=== PATIENT | female | born 1960 | race Caucasian/White ===

== ENCOUNTER 2019-01-21 12:27 | Inpatient (IN) | payer OTHER ==
[~2019-01-21] VITALS: Ht 175.3 cm; Wt 98.0 kg
[2019-01-21 15:00] VITALS: BP 135/63; PULSE 92; RESP 16
[2019-01-21 15:17] VITALS: Ht 175.3 cm; Wt 98.0 kg
[2019-01-21] MEDS ORDERED: SOD CHLORIDE 0.9% 1,000 ML IV SCH (15:41)
[2019-01-21] MEDS ORDERED: LEVOFLOXACIN 500MG/D5W (PMX) 100 ML IVPB SCH (16:00)
[2019-01-21] MEDS ORDERED: ONDANSETRON 4 MG INJ IV PRN (16:00)
[2019-01-21] MEDS ORDERED: NACL 0.9% 3 ML SYG IV SCH (16:00)
[2019-01-21] MEDS ORDERED: HYDROCODONE/APAP (5/325) TAB PO PRN (16:00)
[2019-01-21] MEDS ORDERED: ACETAMINOPHEN 325 MG TAB PO PRN (16:00)
[2019-01-21 16:07] VITALS: PULSE 93
--- NOTE | 2019-01-21 16:10 | HP ---
Date/Time of Note Date/Time of Note DATE: 01/21/19 TIME: 16:10 Assessment/Plan VTE Prophylaxis Pharmacological prophylaxis: other Assessment/Plan Hospital Course Patient is a male to female transgender who presents to [facility] as a transfer for unknown fever and leukocytosis. Patient likes to be referred as Ernestina. Patient states that she was at her normal baseline up unti l this morning, patient is homeless, stated that other than some nausea and diarrhea she had met once earlier in the morning cannot think of any new symptoms. Patient states that she has a chronic cough for approximately 1 to 2 years. Other than that she feels at her normal baseline. Parabasal and consists of some ambulation but usually uses a wheelchair to get around. Patient cannot state any other issues other than feeling just generalized malaise. Patient denies chest pain, severe shortness of breath, dizziness, abdominal pain, difficulty urination, or leg pain. Objective Physical exam General: Patient is laying in bed and answers questions appropriately Mentation: Patient is alert and oriented 4, Head: Normocephalic atraumatic Eyes: EOMI, pupils reactive to light Neck: Supple, nontender, midline Respiratory: Clear to auscultation bilaterally Cardiovascular: regular rate, no obvious murmurs Gastrointestinal: non-tender to palpation, bowel sounds heard. Neurological: Moves all extremities spontaneously Skin: No new skin lesions Assessment and plan Sepsis with possible GI source -Possible viral gastroenteritis, no abdominal pain and only happened once, no diarrhea or nausea currently -Cultures -UA and chest x-ray were negative at outside facility however will repeat UA and chest x-ray here -IV fluid -IV antibiotic as a precaution Hypertension -Continue home meds Male to female transgender -On monthly injections of estrogen, uses spironolactone as blockade -Continue as able Disposition -Getting stat repeat labs of everything, only remarkable issue from outside facility was a white count of 20,000 as well as a fever 102, no other positive lab test. However we may need to call outside facility in 1 to 2 days to see if any of their cultures came back positive. HPI/ROS Admit Date/Time Admit Date/Time Jan 21, 2019 at 14:35 PMH/Family/Social Past Medical History Medications Current Medications Sodium Chloride 1,000 ml @ 50 mls/hr Q20H IV ; Start 01/21/19 at 15:41; Stop 01/22/19 at 11:40 IV Flush (NS 3 ml) 3 ml PER PROTOCOL IV ; Start 01/21/19 at 16:00 Ondansetron HCl (Zofran Inj) 4 mg Q6H PRN IV NAUSEA/VOMITING; Start 01/21/19 at 16:00 Acetaminophen (Tylenol Tab) 650 mg Q6H PRN PO .PAIN 1-3 OR TEMP; Start 01/21/19 at 16:00 Acetaminophen/ Hydrocodone Bitart (Neche (5/325)) 1 tab Q6H PRN PO .PAIN 4-6; Start 01/21/19 at 16:00 Levofloxacin/ Dextrose 100 ml @ 100 mls/hr Q24H IVPB ; Start 01/21/19 at 16:00 Hydrochlorothiazide (Hydrochlorothiazide) 12.5 mg DAILY PO ; Start 01/22/19 at 09:00; Status UNV Montelukast Sodium (Singulair) 10 mg HS PO ; Start 01/21/19 at 21:00; Status UNV Spironolactone (Aldactone) 100 mg DAILY PO ; Start 01/22/19 at 09:00; Status UNV Budesonide (Pulmicort (Neb)) 0.5 mg BID RESP THERAPY HHN ; Start 01/21/19 at 20:00; Status UNV Albuterol/ Ipratropium (Duoneb) 3 ml Q6HWA RESP THERAPY HHN ; Start 01/21/19 at 20:00; Status UNV Albuterol/ Ipratropium (Duoneb) 3 ml Q2H RESP THERAPY PRN HHN shortness of breath; Start 01/21/19 at 16:30; Status UNV Uncoded Allergies: SEA FOOD, CHLORPROMAZINE (Allergy, Mild, 01/21/19) Social History Smoking Status: Current every day smoker Exam/Review of Systems Vital Signs Vitals Vital Signs Date Temp Pulse Resp B/P (MAP) Pulse Ox O2 O2 Flow FiO2 Time Delivery Rate 01/21/19 93 16:07 [place] Jan 21, 2019 16:10
[2019-01-21] MEDS ORDERED: ALBUTEROL/IPRATROPIUM (NEB) 3 ML AMP HHN PRN (16:30)
[2019-01-21 20:00] VITALS: PULSE 102
[2019-01-21] MEDS ORDERED: BUDESONIDE (NEB) 0.5MG/2ML AMP HHN SCH (20:00)
[2019-01-21] MEDS ORDERED: ALBUTEROL/IPRATROPIUM (NEB) 3 ML AMP HHN SCH (20:00)
[2019-01-21] MEDS ORDERED: HYDR12.58 PO (20:57)
[2019-01-21] MEDS ORDERED: NAPR500T8 PO (20:57)
[2019-01-21] MEDS ORDERED: FLUT1BLS INHALATION (20:57)
[2019-01-21] MEDS ORDERED: ASPI-817 PO (20:57)
[2019-01-21] MEDS ORDERED: ATRO INHALATION (20:57)
[2019-01-21] MEDS ORDERED: AMLO-218 PO (20:57)
[2019-01-21] MEDS ORDERED: SPIR100T4 PO (20:57)
[2019-01-21] MEDS ORDERED: MONTELUKAST 10 MG TAB PO SCH (21:00)
[2019-01-21 21:45] VITALS: BP 96/55; PULSE 93; RESP 18
[2019-01-21] MEDS ORDERED: NAPROXEN 500 MG TAB PO PRN (23:00)
[2019-01-21] MEDS: SPIRONOLACTONE 50 MG TAB PO SCH ×2 (23:24→23:41)
[2019-01-21] MEDS ORDERED: AMLODIPINE 10 MG TAB PO SCH (23:30)
[2019-01-21] MEDS ORDERED: ASPIRIN (EC) 81 MG TAB PO SCH (23:30)
[2019-01-21] MEDS ORDERED: FLUTICASONE/VILANTEROL 200-25 INH DEVICE INH SCH ×2 (23:30)
[2019-01-22] VITALS: BP 106/54; PULSE 85; RESP 19
[2019-01-22 04:00] VITALS: BP 128/60; PULSE 78; PULSE 91; RESP 19
--- NOTE | 2019-01-22 08:58 | DS ---
Date/Time of Note Date/Time of Note DATE: 01/22/19 TIME: 08:58 Discharge Summary Admission/Discharge Info Admit Date/Time Jan 21, 2019 at 14:35 Discharge Date/Time Jan 22, 2019 at 07:48 Discharge Diagnosis 1. Sepsis with possible GI source 2. Hypertension 3. Male to female transgender Patient Condition: Stable Procedures PROCEDURE: XR Chest. CLINICAL INDICATION: Pneumonia. TECHNIQUE: Chest, 1 view. COMPARISON: 01/21/2019. FINDINGS: The cardiomediastinal silhouette is normal in size. There are aortic calcifications. There is bilateral interstitial prominence. No pleural effusion is seen. No definite pneumothorax is seen. No acute osseous abnormality. IMPRESSION: Mild bilateral interstitial prominence, representing vascular congestion versus chronic interstitial changes. Aortic atherosclerosis RPTAT: [facility]WH Corie Bermudez Physician Date Time Electronically viewed and signed by Corie Bermudez Physician on 01/21/2019 16:52 Hx of Present Illness Patient is a male to female transgender who presents to [facility] as a transfer for unknown fever and leukocytosis. Patient likes to be referred as Ernestina. Patient states that she was at her normal baseline up until this morning, patient is homeless, stated that other than some nausea and diarrhea she had met once earlier in the morning cannot think of any new symptoms. Patient states that she has a chronic cough for approximately 1 to 2 years. Other than that she feels at her normal baseline. Parabasal and consists of some ambulation but usually uses a wheelchair to get around. Patient cannot state any other issues other than feeling just generalized malaise. Patient denies chest pain, severe shortness of breath, dizziness, abdominal pain, difficulty urination, or leg pain. Hospital Course Patient was admitted for additional workup of unknown fever and leukocytosis. Patient remained afebrile and WBC was trending down. Patient had repeat CXR that was negative for acute infection. She was noted with acute GI symptoms which may have been the source of her symptoms. Patient left AGAINST MEDICAL ADVICE before full workup was completed. Home Meds Reported Medications Fluticasone/Vilanterol (Breo Ellipta 200-25 Mcg INH) 1 Each Blst.w.dev, 1 PUFF INHALATION QHS, #1 INHALER 01/21/19 Ipratropium [place]* (Atrovent HFA*) 12.9 Gm Aer.w.adap, 2 PUFF INHALATION DAILY, #1 INHALER 01/21/19 Spironolactone* (Spironolactone*) 100 Mg Tablet, 100 MG PO QHS, TAB 01/21/19 Naproxen* (Naproxen EC*) 500 Mg Tablet., 500 MG PO BID PRN for PAIN, TAB 01/21/19 Hydrochlorothiazide* (Hydrochlorothiazide*) 12.5 Mg Tablet, 12.5 MG PO QHS, #30 TAB 01/21/19 Amlodipine Besylate* (Norvasc*) 10 Mg Tablet, 10 MG PO QHS, TAB 01/21/19 Aspirin* (Aspirin* EC) 81 Mg Tablet., 81 MG PO QHS, TAB 01/21/19 Primary Care Provider [facility] Time spent on discharge: < 30 minutes Pending Labs Laboratory Tests Test 01/21/19 16:00 01/21/19 16:37 01/21/19 23:30 01/22/19 05:15 Prothrombin 14.3 Time Sec (11.9-14.9) Prothrombin 1.1 Time Ratio INR 1.10 International Normalized Rati o Activated 28.9 Partial Thrombo Sec (23.0-35.0) plast Time Sodium Level 136 139 mmol/L (135-144 mmol/L (135-14 ) 4) Potassium 4.2 3.6 Level mmol/L (3.5-5.1 mmol/L (3.5-5. ) 1) Chloride Level 103 105 mmol/L (97-110) mmol/L (97-110 ) Carbon Dioxide 23 26 Level mmol/L (21-31) mmol/L (21-31) Anion Gap 10 (5-13) 8 (5-13) Blood Urea 18 mg/dl (7-20) 16 Nitrogen mg/dl (7-20) Creatinine 0.96 0.89 mg/dl (0.44-1.0 mg/dl (0.44-1. 0) 00) Est Glomerular > 60 > 60 Filtrat mL/min (>60) mL/min (>60) Rate mL/min Glucose Level 108 161 mg/dl (70-220) mg/dl (70-220) Lactic Acid 1.3 Level mmol/L (0.5-2.0 ) Calcium Level 8.8 9.0 mg/dl (8.4-10.2 mg/dl (8.4-10. ) 2) Total 0.3 0.3 Bilirubin mg/dl (0.2-1.3) mg/dl (0.2-1.3 ) Direct 0.00 0.00 Bilirubin mg/dl (0.00-0.2 mg/dl (0.00-0. 0) 20) Indirect 0.3 0.3 Bilirubin mg/dl (0-1.1) mg/dl (0-1.1) Aspartate Amino 16 IU/L (15-46) 11 Transf (AST/SGO IU/L (15-46) T) Alanine 13 IU/L (13-69) 13 Aminotransferas IU/L (13-69) e (ALT/SGPT) Alkaline 59 50 Phosphatase IU/L (42-121) IU/L (42-121) Total Protein 7.1 6.5 g/dl (6.1-8.1) g/dl (6.1-8.1) Albumin 4.0 3.5 g/dl (3.3-4.9) g/dl (3.3-4.9) Globulin 3.10 3.00 g/dl (1.3-3.2) g/dl (1.3-3.2) Albumin/Globuli 1.29 1.16 n Ratio White Blood 28.9 16.5 Count 10^3/ul (4.8-1 10^3/ul (4.8-1 0.8) 0.8) Red Blood 4.60 4.19 Count 10^6/ul (4.20- 10^6/ul (4.20- 5.40) 5.40) Hemoglobin 13.6 12.4 g/dl (12.0-16. g/dl (12.0-16. 0) 0) Hematocrit 42.0 38.7 % (37.0-47.0) % (37.0-47.0) Mean 91.3 92.4 Corpuscular fl (82.0-101.0 fl (82.0-101.0 Volume ) ) Mean 29.6 29.6 Corpuscular pg (29.0-33.0) pg (29.0-33.0) Hemoglobin Mean 32.4 32.0 Corpuscular g/dl (32.0-37. g/dl (32.0-37. Hemoglobin Conc 0) 0) ent Red Cell 13.2 13.2 Distribution % (11.5-14.5) % (11.5-14.5) Width Platelet Count 207 266 10^3/UL (140-4 10^3/UL (140-4 15) 15) Mean Platelet 12.1 10.9 Volume fl (7.4-10.4) fl (7.4-10.4) Immature 1.300 0.700 Granulocytes % % (0.001-0.429 % (0.001-0.429 ) ) Neutrophils % % (39.0-77.0) 84.9 % (39.0-77.0) Segmented 85 % (39-77) Neutrophils % (Manual) Band 2 % (0-4) Neutrophils % (Manual) Lymphocytes % % (15.0-51.0) 7.0 % (15.0-51.0) Lymphocytes % 2 % (15-51) (Manual) Reactive 1 % (0-0) Lymphocytes % (Manual) Monocytes % % (0.0-11.0) 5.9 % (0.0-11.0) Monocytes % 7 % (0-11) (Manual) Eosinophils % % (0.0-7.0) 1.0 % (0.0-7.0) Basophils % % (0.0-2.0) 0.5 % (0.0-2.0) Basophils % 3 % (0-2) (Manual) Nucleated Red 0.0 0.0 Blood Cells % /100WBC (0.0-0 /100WBC (0.0-0 .0) .0) Immature 0.380 0.110 Granulocytes # 10^3/ul (0.0-0 10^3/ul (0.0-0 .031) .031) Neutrophils # 10^3/ul (1.6-7 14.0 .5) 10^3/ul (1.6-7 .5) Neutrophils # 24.7 (Manual) 10^3/ul (1.6-7 .5) Band 0.5 Neutrophils # 10^3/ul (0.0-0 .6) Lymphocytes 0.5 (Manual) 10^3/ul (0.8-2 .9) Lymphocytes # 10^3/ul (0.8-2 1.2 .9) 10^3/ul (0.8-2 .9) Reactive 0.2 Lymphocytes # 10^3/ul (0.0-0 .0) Monocytes # 10^3/ul (0.3-0 1.0 .9) 10^3/ul (0.3-0 .9) Monocytes # 2.0 (Manual) 10^3/ul (0.3-0 .9) Eosinophils # 10^3/ul (0.0-0 0.2 .5) 10^3/ul (0.0-0 .5) Basophils # 10^3/ul (0.0-0 0.1 .1) 10^3/ul (0.0-0 .1) Basophils # 0.8 (Manual) 10^3/ul (0.0-0 .0) Nucleated Red 10^3/ul (0.0-0 0.0 Blood Cells # .0) 10^3/ul (0.0-0 .0) Pathologist YES Review (Hematol ogy) Platelet NORMAL Estimate Urine Color YELLOW (YELLOW ) Urine Clarity CLEAR (CLEAR) Urine pH 7.0 (5.0-9.0) Urine Specific 1.010 (1.003-1 [place] .030) Urine Ketones NEGATIVE mg/dL (NEGATIV E) Urine Nitrite NEGATIVE mg/dL (NEGATIV E) Urine NEGATIVE Bilirubin mg/dL (NEGATIV E) Urine 1+ Urobilinogen mg/dL (NEGATIV E) Urine Leukocyte NEGATIVE Daisy/u Esterase l Urine 2 /HPF (0-5) Microscopic RBC Urine 1 /HPF (0-5) Microscopic WBC Urine 1+ Hemoglobin mg/dL (NEGATIV E) Urine Glucose NEGATIVE mg/dL (NEGATIV E) Urine Total NEGATIVE Protein mg/dl (NEGATIV E) Magnesium 2.1 Level mg/dl (1.7-2.5 ) Triglycerides 75 Level mg/dl (0-149) Cholesterol 96 Level mg/dl (100-200 ) LDL 50 mg/dl Cholesterol, Calculated HDL 31 Cholesterol mg/dl (37-92) Cholesterol/HDL 3.0 RATIO Ratio Thyroid 0.663 Stimulating MIU/L (0.465-4 Hormone (TSH) .680) ELINOR RENTERIA MD Jan 22, 2019 08:58
[2019-01-22] MEDS ORDERED: SPIRONOLACTONE 50 MG TAB PO SCH ×2 (09:00→21:00)
[2019-01-22] MEDS ORDERED: HYDROCHLOROTHIAZIDE 12.5 MG CAP PO SCH ×2 (09:00→21:00)
[2019-01-22] MEDS ORDERED: IPRATROPIUM (HFA) 12.9 GM INHALER INH SCH (09:00)
[2019-01-22] MEDS ORDERED: ASPIRIN (EC) 81 MG TAB PO SCH (21:00)
[2019-01-22] MEDS ORDERED: AMLODIPINE 10 MG TAB PO SCH (21:00)
[2019-01-22] MEDS ORDERED: FLUTICASONE/VILANTEROL 200-25 INH DEVICE INH SCH (21:00)
== END 2019-01-22 07:48 | disposition left against medical advice (07) | DRG 872 ==
LOC: 6WM 14:35
PROVIDERS: ADMIT Internal Medicine; ATTEND Internal Medicine
DX: A41.9 Sepsis, unspecified organism (principal); K92.9 Disease of digestive system, unspecified; I10 Essential (primary) hypertension; F64.8 Other gender identity disorders; F17.200 Nicotine dependence, unspecified, uncomplicated; Z59.0 Homelessness
CPT/HCPCS: 71045; 80053; 80061; 80307; 81001; 83036; 83605; 83735; 84443; 85025; 85610; 85730; 87081; 87086; 94640; 94664; J1956; J7030